=== PATIENT | female | born 1975 | race Caucasian/White ===

== ENCOUNTER 2018-10-17 15:41 | Emergency (ER) | payer MEDICAID ==
--- NOTE | 2018-10-17 16:45 | EDPHY ---
H & P Stated Complaint: Migraine Time Seen by Provider: 10/17/18 16:22 HPI/ROS: CHIEF COMPLAINT: Migraine headache HISTORY OF PRESENT ILLNESS: 43-year-old female with chronic pain and migraine headaches presents with a typical migraine headache. Onset of a throbbing moderate headache 3 days ago. The headache is persistent and is associated with nausea and photophobia. Similar to prior migraine headaches. Ibuprofen without relief. Chronic cough, no recent illness or fever. REVIEW OF SYSTEMS: complete 10 point ROS reviewed and is negative except for the noted elements in the HPI - Personal History LMP (Females 10-55): Over 28 Days Ago Current Tetanus/Diphtheria Vaccine: Yes - Medical/Surgical History Hx Asthma: No Hx Chronic Respiratory Disease: No Hx Diabetes: No Hx Cardiac Disease: No Hx Renal Disease: No Hx Cirrhosis: No Hx Alcoholism: No Hx HIV/AIDS: No Hx Splenectomy or Spleen Trauma: No Other PMH: trigeminal neuralgia. chronic pain -neck and back. mental health shizo affec bipolar adhd anxiety ptsd - Social History Smoking Status: Heavy smoker - Physical Exam Exam: General Appearance: Alert, pleasant, does not appear in pain Eyes: Pupils equal and round, no conjunctival pallor ENT, Mouth: Mucous membranes moist Neck: Normal inspection Respiratory: Lungs are clear to auscultation Cardiovascular: Regular rate and rhythm Gastrointestinal: Abdomen is soft and nontender Neurological: Alert, oriented x3, cranial nerves II through XII intact, motor 5 /5, sensory intact to light touch, normal gait. Skin: Warm and dry, no rash Extremities: Nontender, no pedal edema Psychiatric: Mood and affect normal Constitutional: Initial Vital Signs Temperature (C) 36.9 C 10/17/18 15:48 Heart Rate 107 H 10/17/18 15:48 Respiratory Rate 20 10/17/18 15:48 Blood Pressure 122/106 H 10/17/18 15:48 O2 Sat (%) 92 10/17/18 15:48 O2 Delivery Mode Room Air Allergies/Adverse Reactions: acetaminophen [From Percocet] Allergy (Unverified 10/17/18 15:52) codeine Allergy (Verified 10/17/18 15:52) oxycodone [From Percocet] Allergy (Unverified 10/17/18 15:52) tramadol Allergy (Verified 10/17/18 15:52) Home Medications: Medication Instructions Recorded Baclofen 01/24/18 Gabapentin 01/24/18 Hydrocodone/APAP 5/325 [[place] 1 - 2 tab PO Q4H PRN #9 tab 01/24/18 5/325 (*)] Paxil 01/24/18 Trileptal 01/24/18 Vicodin 5-300 mg Tablet 01/24/18 Medical Decision Making ED Course/Re-evaluation: This patient presents with a typical migraine headache. Neurologic exam is normal and I do not suspect alternative etiology. Reglan, Benadryl and Toradol IV given. 1745: Patient feels much better and would like to go home. Headache has almost completely resolved. Warning signs discussed. Differential Diagnosis: Headache including but not limited to subarachnoid hemorrhage, migraine headache , tension headache and infectious causes such as meningitis, pharyngitis and sinusitis. - Data Points Medications Given: Discontinued Medications Diphenhydramine HCl (Benadryl Injection) 25 mg IVP EDNOW ONE Stop: 10/17/18 16:54 Last Admin: 10/17/18 17:10 Dose: 25 mg Ketorolac Tromethamine (Toradol) 30 mg IVP EDNOW ONE Stop: 10/17/18 16:54 Last Admin: 10/17/18 17:11 Dose: 30 mg Metoclopramide HCl (Reglan Injection) 10 mg IVP EDNOW ONE Stop: 10/17/18 16:54 Last Admin: 10/17/18 17:10 Dose: 10 mg Departure - Departure Disposition: Home, Routine, Self-Care Clinical Impression: Migraine headache Condition: Good Instructions: Migraine Headache (ED) Referrals: TRESA JEFF [Other] - As per Instructions
[2018-10-17] MEDS ORDERED: METOCLOPRAMIDE 10 MG/2 ML VIAL IVP ONE (16:53)
[2018-10-17] MEDS ORDERED: KETOROLAC 30 MG/1 ML SDV IVP ONE (16:53)
[2018-10-17 17:59] VITALS: BP 122/89
== END 2018-10-17 17:59 | disposition home or self-care (01) ==
DX: G43.909 Migraine, unspecified, not intractable, without status migrainosus (principal); R05 Cough; G89.29 Other chronic pain; F17.200 Nicotine dependence, unspecified, uncomplicated
CPT/HCPCS: 96374; J1200; J1885; J2765

== ENCOUNTER 2018-10-23 09:34 | Emergency (ER) | payer MEDICAID ==
--- NOTE | 2018-10-23 10:07 | EDPHY ---
H & P Stated Complaint: MANZANARES, nausea Time Seen by Provider: 10/23/18 10:03 HPI/ROS: HPI: This is a 43-year-old female who presents with Chief Complaint: Headache, chronic pain Location: Base of neck and head Quality: Aching pain Duration: Several days Signs and Symptoms: no fever, no nausea, no vomiting, no photophobia, no noise sensitivity, no neck stiffness, no ear pain, no tinnitus, no nasal congestion, no sinus pressure, no weakness, no radiation, no aura Timing: Waxes and wane Severity: Mild Context: Patient presents with with complaints of a dull aching headache all over her head but primarily at the base of her neck. The pain is bilateral in nature. Pain is nonradiating. Patient has a history of migraines, trigeminal neuralgia followed by local Neurology, chronic pain of neck and back. Patient was seen in this emergency room on 10/17/2018 with complaints of a migraine headache. She reports that status post her ER visit she had the migraine component of her headache resolved. She believes that this is distress at this time. She has an MRI scheduled on Saturday of her lumbar and cervical spine. Primary care provider she saw yesterday regarding her pain and was declined pain medications. She does have a pain management appointment next week. Patient is requesting medications in the emergency room and then a prescription for Zofran. She denies any radiation, weakness, decreased range of motion, nausea, vomiting. She has no thunderclap symptoms and denies worse headache of her life. Modifying Factors: Gabapentin no relief Comment: ROS: A comprehensive 10 system review of systems is otherwise negative aside from elements mentioned in the history of present illness. MEDICAL/SURGICAL/SOCIAL HISTORY: Medical history: migraines, trigeminal neuralgia, chronic pain -neck and back mental health schizoaffective, bipolar, attention deficit hyperactivity disorder , anxiety, posttraumatic stress disorder Surgical history: Denies Social history: Disabled. Family history noncontributory. CONSTITUTIONAL: Morbidly obese well-appearing talkative white female, awake and alert, wearing headphones, no obvious distress HEENT: Atraumatic and normocephalic, PERRL, EOMI. Wears glasses, Nares patent; no rhinorrhea; no nasal mucosal edema. Tympanic membranes clear. Oropharynx clear, no exudate and moist pink mucosa. Airway patent. No lymphadenopathy. NECK: supple, bilateral trapezius reproducible multiple trigger-point tenderness , no midline tenderness, flexion 45 degrees, extension 45 degrees, right and left lateral flexion 45 degrees. No meningismus. Cardiovascular: Normal S1/S2, regular rate, regular rhythm, without murmur rub or gallop. PULMONARY/CHEST: Symmetrical and nontender. Clear to auscultation bilaterally. Good air movement. No accessory muscle usage. ABDOMEN: Soft, nondistended, nontender, no rebound, no guarding, no peritoneal signs, no masses or organomegaly. No CVAT. EXTREMITIES: 2/2 pulses, strength 5/5, no deformities, no clubbing, no cyanosis or edema. NEUROLOGICAL: no focal neuro deficits. GCS 15. Cranial nerves 2-12 grossly intact. SKIN: Warm and dry, pallor, no erythema. no rash. Good capillary refill. Source: Patient, Old records Exam Limitations: No limitations - Personal History Current Tetanus/Diphtheria Vaccine: Yes Current Tetanus Diphtheria and Acellular Pertussis (TDAP): Yes - Medical/Surgical History Hx Asthma: No Hx Chronic Respiratory Disease: Yes Hx Diabetes: No Hx Cardiac Disease: No Hx Renal Disease: No Hx Cirrhosis: No Hx Alcoholism: No Hx HIV/AIDS: No Hx Splenectomy or Spleen Trauma: No Other PMH: migraines, trigeminal neuralgia. chronic pain -neck and back. mental health shizo affec bipolar adhd anxiety ptsd - Social History Smoking Status: Heavy smoker Constitutional: Initial Vital Signs Temperature (C) 37 C 10/23/18 09:47 Heart Rate 90 10/23/18 09:47 Respiratory Rate 20 10/23/18 09:47 Blood Pressure 138/93 H 10/23/18 09:47 O2 Sat (%) 93 10/23/18 09:47 O2 Delivery Mode Room Air Allergies/Adverse Reactions: acetaminophen [From Percocet] Allergy (Unverified 10/23/18 09:45) codeine Allergy (Verified 10/23/18 09:45) oxycodone [From Percocet] Allergy (Unverified 10/23/18 09:45) tramadol Allergy (Verified 10/23/18 09:45) Home Medications: Medication Instructions Recorded Baclofen 01/24/18 Gabapentin 01/24/18 Hydrocodone/APAP 5/325 [[place] 1 - 2 tab PO Q4H PRN #9 tab 01/24/18 5/325 (*)] Paxil 01/24/18 Trileptal 01/24/18 Vicodin 5-300 mg Tablet 01/24/18 Clonidine 10/23/18 Flonase Nasal [place] 10/23/18 Montelukast Sodium 10/23/18 Ondansetron Odt [Zofran Odt 4 mg 4 mg PO Q4 PRN #12 tab 10/23/18 (*)] Singulair 10/23/18 Zyrtec 10/23/18 Medical Decision Making ED Course/Re-evaluation: Vital signs reviewed and stable upon arrival. No neurological deficits to warrant imaging brain MRI or head CT imaging I suspect there is a tension component to the headache as well as chronic pain. Patient given IV Decadron, IV Reglan, IV Benadryl, IV Zofran, IV Toradol with adequate relief. 1143: Reassessed patient who reports moderate relief of symptoms. Prescription given for Zofran. She will follow up with pain management early next week. This patient was seen under the supervision of my primary supervising physician. I evaluated care for this patient independently. Differential Diagnosis: Headache including but not limited to subarachnoid hemorrhage, migraine headache , tension headache and infectious causes such as meningitis, pharyngitis and sinusitis. - Data Points Medications Given: Discontinued Medications Dexamethasone (Decadron Injection) 10 mg IVP EDNOW ONE Stop: 10/23/18 10:32 Last Admin: 10/23/18 10:58 Dose: 10 mg Diphenhydramine HCl (Benadryl Injection) 25 mg IVP EDNOW ONE Stop: 10/23/18 10:32 Last Admin: 10/23/18 10:57 Dose: 25 mg Ketorolac Tromethamine (Toradol) 15 mg IVP/IM EDNOW ONE Stop: 10/23/18 10:32 Last Admin: 10/23/18 10:57 Dose: 15 mg Metoclopramide HCl (Reglan Injection) 10 mg IVP EDNOW ONE Stop: 10/23/18 10:32 Last Admin: 10/23/18 10:57 Dose: 10 mg Ondansetron HCl (Zofran) 4 mg IVP EDNOW ONE Stop: 10/23/18 10:32 Last Admin: 10/23/18 10:57 Dose: 4 mg Departure - Departure Disposition: Home, Routine, Self-Care Clinical Impression: Chronic pain Qualifiers: Chronic pain type: chronic pain syndrome Qualified Code(s): G89.4 - Chronic pain syndrome Cephalgia Qualifiers: Headache type: tension-type Headache chronicity pattern: unspecified pattern Intractability: not intractable Qualified Code(s): G44.209 - Tension-type headache, unspecified, not intractable Condition: Good Instructions: Tension Headache (ED), Chronic Pain (ED) Additional Instructions: Please keep appointment for MRI of your back on Saturday and pain management appointment. Take all medications as prescribed. Consume a minimum of 8-10 glasses of water or electrolyte fluid replacement drinks that include Gatorade, Powerade, Pedialyte. Take Zofran 1 tab every 4 hours as needed for nausea, vomiting. Referrals: Radha Lynne, INVESTMENT MANAGER [Primary Care Provider] - As per Instructions Prescriptions: Ondansetron Odt [Zofran Odt 4 mg (*)] 4 mg PO Q4 PRN #12 tab PRN Reason: Nausea/Vomiting, Use 1st
[2018-10-23] MEDS ORDERED: KETOROLAC 15 MG/1 ML SDV IVP/IM ONE (10:31)
[2018-10-23] MEDS ORDERED: ONDANSETRON 4 MG/2 ML VIAL IVP ONE (10:31)
[2018-10-23] MEDS ORDERED: METOCLOPRAMIDE 10 MG/2 ML VIAL IVP ONE (10:31)
[2018-10-23] MEDS ORDERED: DEXAMETHASONE 4 MG/ML VIAL IVP ONE (10:31)
[2018-10-23] MEDS ORDERED: DEXAMETHASONE 10 MG/ML VIAL ONE (10:41)
[2018-10-23 12:03] VITALS: BP 139/83
== END 2018-10-23 12:03 | disposition home or self-care (01) ==
DX: G44.209 Tension-type headache, unspecified, not intractable (principal); G89.29 Other chronic pain
CPT/HCPCS: 96374; J1100; J1200; J1885; J2405; J2765